=== PATIENT | female | born 1960 | race American Indian/Alaskan Native ===

== ENCOUNTER 2017-04-18 15:35 | Outpatient (CLI) | payer BC ==
--- NOTE | 2017-04-22 11:38 | Mammography Report ---
BILATERAL DIGITAL SCREENING MAMMOGRAM with CAD: 04/18/17 15:35:00 CLINICAL: Routine screening. COMPARISON: 04/18/16 FINDINGS: There are bilateral scattered areas of fibroglandular density.No mass, architectural distortion or suspicious calcifications. IMPRESSION: No mammographic evidence of malignancy. BI-RADS CATEGORY: 1 -- Negative RECOMMENDATION: Routine mammographic screening in one year. COMMENT: Patient follow-up letters are generated by our [employer] application.
== END 2017-04-18 15:36 | disposition home or self-care (01) ==
LOC: SPVWC 15:35
PROVIDERS: ATTEND Family Medicine
DX: Z12.31 Encounter for screening mammogram for malignant neoplasm of breast (principal)
CPT/HCPCS: 77067; G0202

== ENCOUNTER 2020-06-23 13:11 | Outpatient (CLI) | payer BC ==
--- NOTE | 2020-06-23 17:00 | Mammography Report ---
DEXA BONE DENSITY SCAN INDICATION: SCREENING FOR OSTEOPOROSIS COMPARISON: None available. LUMBAR SPINE (L1-L4): Bone mineral density (BMD) is 0.926 g/cm2. T-score is -2.0 (standard deviations of Young Adult mean). Z-score is -0.5 (standard deviations of Age Matched mean). RIGHT FEMORAL NECK: Bone mineral density (BMD) is 0.679 g/cm2. T-score is -1.9 (standard deviations of Young Adult mean). Z-score is -0.9 (standard deviations of Age Matched mean). IMPRESSION: 1. WHO Classification: Osteopenia. Fracture Risk: Increased. Signer Name: Carlo Dickerson MD Signed: 06/23/2020 4:56 PM Workstation Name: [email or web address]
== END 2020-06-23 13:12 | disposition home or self-care (01) ==
LOC: SPVWC 13:11
PROVIDERS: ATTEND Family Medicine
DX: Z12.31 Encounter for screening mammogram for malignant neoplasm of breast (principal); Z13.820 Encounter for screening for osteoporosis; M85.88 Other specified disorders of bone density and structure, other site
CPT/HCPCS: 77067; 77080